=== PATIENT | female | born 1995 | race Caucasian/White ===

== ENCOUNTER 2018-10-15 20:40 | Emergency (ER) | payer OTHER ==
--- NOTE | 2018-10-15 21:09 | PDOC ---
History of Present Illness - General Stated Complaint: DIFFICULTY BREATHING Time Seen by Provider: 10/15/18 21:07 - History of Present Illness Initial Comments: 10/15/18 21:27 PCP: Dr. Cervantes Patient is a 22 year old female came in to the ED with the chief complaint of sore throat, shortness of breath and wheezing x 2 days. As per the patient, her symptoms started since 2 days, runny nose, productive cough with yellowish sputum. She used albuterol inhalation twice today but didn't feel better, shortness of breath and wheezing worsened so she came here for further evaluation. Denies fever, chills, rigors, sweating, headache, dizziness, nausea, vomiting, abdominal pain. Bowel/Bladder habit normal. Sleep/Appetite normal. Patient also reports unintentional weight loss, decreased appetite, that she noticed for 2-3 months, saw Dr. Cervantes who recommended blood work a month ago but pt hasn't done the blood work yet. States she stopped smoking weed and now her appetite is back and gaining weight. Past Medical history: Asthma dx since childhood (never been intubated), Strep pharyngitis twice Allergies: NKDA Past Surgical history: NKDA Medications: Albuterol Social: Smoking: Denies tobacco smoking Alcohol: Occasional Drugs: Quit smoking weed 2 weeks ago, used to smoke since childhood, 1-2 sticks- 4-5 times a week. Family hx: Non contributory. Past History - Travel Traveled outside of the country in the last 30 days: No Close contact w/someone who was outside of country & ill: No - Past Medical History Allergies/Adverse Reactions: Allergies Allergy/AdvReac Type Severity Reaction Status Date / Time No Known Allergies Allergy Verified 10/09/15 19:38 Home Medications: Ambulatory Orders Albuterol 0.083% Nebulizer Jessica [Ventolin 0.083% Nebulizer Soln -] 1 amp NEB BID PRN #1 amp 10/15/18 Prednisone [Deltasone] 20 mg PO DAILY #4 tablet 10/15/18 Asthma: Yes - Immunization History Immunization Up to Date: Yes - Suicide/Smoking/Psychosocial Hx Smoking History: Never smoked Have you smoked in the past 12 months: No Number of Cigarettes Smoked Daily: 0 Hx Alcohol Use: No Drug/Substance Use Hx: No Substance Use Type: None Review of Systems - Review of Systems Able to Perform ROS?: Yes Is the patient limited Mongolian proficient: No Constitutional: Yes: See HPI HEENTM: Yes: See HPI Respiratory: Yes: See HPI *Physical Exam - Physical Exam Comments: 10/15/18 21:47 General: Patient is sitting comfortably in bed, awake, alert, oriented x 3, can speak full sentence. HEENT: EOM intact, no pallor or icterus. Chest: B/L wheezing + CVS: Sinus tachycardia, S1, S2, no murmurs Abdomen: Soft, non tender, no organomegaly, BS + Ext: No Peripheral edema Neuro: Grossly normal. ED Treatment Course - LABORATORY CBC & Chemistry Diagram: 10/15/18 21:50 10/15/18 21:50 Medical Decision Making - Medical Decision Making 10/15/18 21:50 Patient is a 22 year old female came in to the ED for evaluation of sore throat , wheezing, shortness of breath and productive cough. Differential diagnosis: Asthma exacerbation with Upper respiratory tract infection, strep pharyngitis. Unlikely pneumonia, bronchitis. Will send CBC, CMP, Serum preg test Rapid strep test and flu. Once the preg test is back will send CXR PA/Lat Will give her Albuterol inhalation, Prednisone 60mg once. 10/15/18 23:05 CXR negative for acute pathology CBC, CMP normal. Urine preg test negative. Patient is currently feeling better. Vitals are stable. Saturation 97 % at RA. Wheezing has improved. Stable to be discharged home *DC/Admit/Observation/Transfer Diagnosis at time of Disposition: Asthma exacerbation, Upper respiratory tract infection - Discharge Dispostion Disposition: HOME Condition at time of disposition: Improved Decision to Admit order: No - Prescriptions Prescriptions: Albuterol 0.083% Nebulizer Jessica [Ventolin 0.083% Nebulizer Soln -] 1 amp NEB BID PRN #1 amp PRN Reason: Asthma Prednisone [Deltasone] 20 mg PO DAILY #4 tablet - Referrals - Patient Instructions Printed Discharge Instructions: Asthma -- Adult Additional Instructions: You were evaluated for cold like symptoms, you have upper respiratory tract infection with asthma exacerbation. Sending prescription to your pharmacy, please take it as directed. If your symptoms worsen, please come to the ED immediately. Follow up with your primary physician within a week. - Post Discharge Activity
[2018-10-15] MEDS ORDERED: predniSONE 20 MG TABLET (UD) PO ONE (21:28)
[2018-10-15 21:29] VITALS: BP 107/76; PULSE 114; TEMP 98.3; BMI 19.3
[2018-10-15] MEDS ORDERED: ALBUTEROL SO4 0.083% IH SOL 2.5 MG/3 ML VIAL.NEB. NEB ONE ×2 (21:31→21:37)
[2018-10-15] MEDS ORDERED: predniSONE 20 MG TABLET (UD) ONE (21:37)
--- NOTE | 2018-10-15 21:58 | PDOC ---
Documentation entered by Louis Herrera SCRIBE, acting as scribe for Marcela Hawk MD. Marcela Hawk MD: This documentation has been prepared by the Sharon hansen Nirvannie, SCRIBE, under my direction and personally reviewed by me in its entirety. I confirm that the documentation accurately reflects all work, treatment, procedures, and medical decision making performed by me. Attending Attestation - Resident Resident Name: Krysta Torres - ED Attending Attestation I have performed the following: I have examined & evaluated the patient, The case was reviewed & discussed with the resident, I agree w/resident's findings & plan - HPI HPI: 10/15/18 21:40 The patient is a 22 year old female, with no significant past medical history, who presents to the emergency department with, 2 days of cough, nasal congestion , and new onset difficulty breathing. Patient notes using her rescue inhaler, without relief, prompting her arrival to the ED. Allergies: NKDA Primary Care Physician: Dr. Cervantes - Physicial Exam PE: 10/15/18 21:41 GENERAL: Well-appearing, well-nourished. No apparent distress. HEENT: Normocephalic, atraumatic. PERRL, EOM intact.+rhinorrhea CARDIOVASCULAR: Normal S1, S2. Regular rate and rhythm. PULMONARY: +Mild blt wheezing. ABDOMEN: Soft, non-distended, non-tender. EXTREMITIES: Normal ROM in all four extremities. No gross deformities. SKIN: Warm, dry. No rash NEUROLOGICAL: No focal neurological deficits. 10/15/18 21:54 - Medical Decision Making 10/15/18 21:55 imp 22 yo female w PMH of asthma who has an URI that triggered asthma no hypoxia,no resp distress plan preg test,cxr,cbc,comp,bronchodilators,steroids 10/15/18 22:47 pt 's cbc and chemistries are unremarkable negative preg test pt received albuterol and prednisone imp URI, asthma exacerbation RX for albuterol /prednisone /zithromax to her pharmacy d/c home with folllowup with Dr Guzman 10/15/18 22:57
[2018-10-15 22:04] LABS: HEMATOCRIT 41.5 % (32.4-45.2); HEMOGLOBIN 14.1 GM/dL (10.7-15.3); MCH 33.5 pg (25.7-33.7); MEAN CELL VOLUME 98.6 fl (80-96); RBC 4.21 M/mm3 (3.60-5.2); RDW 12.5 % (11.6-15.6); WHITE BLOOD COUNT 7.6 K/mm3 (4.0-10.0)
[2018-10-15 22:33] LABS: ALBUMIN 4.2 g/dl (3.4-5.0); BILIRUBIN,TOTAL 0.5 mg/dL (0.2-1); BLOOD UREA NITROGEN 11.8 mg/dL (7-18); CALCIUM 9.1 mg/dL (8.5-10.1); CREATININE 0.8 mg/dL (0.55-1.3); POTASSIUM 3.9 mmol/L (3.5-5.1); TOT PROT 7.9 g/dl (6.4-8.2)
[2018-10-15 22:50] LABS: PLATELET COUNT 234 K/MM3 (134-434)
[2018-10-15] MEDS ORDERED: ALBUTEROL SO4 8 GM HFA INHALER IH PRN (23:29)
== END 2018-10-15 23:14 | disposition home or self-care (01) ==
LOC: JER 20:40
PROC: 3E0F7GC Introduction of Other Therapeutic Substance into Respiratory Tract, Via Natural or Artificial Opening (ICD-10-PCS; principal; 2018-10-15)
DX: J45.901 Unspecified asthma with (acute) exacerbation (principal); J06.9 Acute upper respiratory infection, unspecified
CPT/HCPCS: 36415; 71046-TC-FY; 80053; 84703; 85027; 87070; 87804; 87880; 94640; 99281-25

== ENCOUNTER 2018-12-18 13:09 | Emergency (ER) | payer OTHER ==
[2018-12-18 13:16] VITALS: BP 110/69; PULSE 95; TEMP 98; BMI 19.3
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
== END 2018-12-18 15:38 | disposition home or self-care (01) ==
LOC: JERFT 13:09
DX: T14.8XXA Other injury of unspecified body region, initial encounter (principal); W50.0XXA Accidental hit or strike by another person, initial encounter; Y93.89 Activity, other specified; Y92.89 Other specified places as the place of occurrence of the external cause; J45.909 Unspecified asthma, uncomplicated
CPT/HCPCS: 70450-TC; 70486-TC; 84703; 99281-25

== ENCOUNTER 2019-01-02 12:54 | Emergency (ER) | payer OTHER ==
--- NOTE | 2019-01-02 13:02 | PDOC ---
Rapid Medical Evaluation Chief Complaint: Urinary Problem Time Seen by Provider: 01/02/19 13:00 Medical Evaluation: Allergies Allergy/AdvReac Type Severity Reaction Status Date / Time No Known Allergies Allergy Verified 12/18/18 13:14 01/02/19 13:00 Pt presents to the ER for 1 day of dyuria, hemauria,and frequency. LMP first week of december Exam: suprapubic tenderness Orders: urine, preg Pt to proceed to the ER for further evaluation Discharge Disposition - Diagnosis Dysuria - Referrals - Patient Instructions - Post Discharge Activity
[2019-01-02 13:03] VITALS: BP 98/61; PULSE 81; TEMP 98.4; BMI 19.3
[2019-01-02 14:04] LABS: EPI CELLS 2.6 /HPF (0-5/HPF); HYALINE CASTS 7 /lpf (0-8); URINE APPEARANCE TURBID; URINE BACTERIA 433.6 /hpf (NEGATIVE); URINE BILIRUBIN NEGATIVE (NEGATIVE); URINE COLOR ORANGE; URINE GLUCOSE (UA) NEGATIVE (NEGATIVE); URINE KETONE TRACE (NEGATIVE); URINE LEUK ESTERASE 3+ (NEGATIVE); URINE NITRITE NEGATIVE (NEGATIVE); URINE PROTEIN 3+ (NEGATIVE); URINE RBC 1124 /hpf (0-4); URINE WBC 748 /hpf (0-5)
--- NOTE | 2019-01-02 14:22 | PDOC ---
History of Present Illness - General Chief Complaint: Urinary Problem Stated Complaint: URINARY PROBLEM/BLOOD IN URIN Time Seen by Provider: 01/02/19 13:00 - History of Present Illness Initial Comments: 01/02/19 14:21 23-year-old female with dysuria times one day without systemic symptoms Past History - Past Medical History Allergies/Adverse Reactions: Allergies Allergy/AdvReac Type Severity Reaction Status Date / Time No Known Allergies Allergy Verified 01/02/19 13:03 Home Medications: Ambulatory Orders Albuterol 0.083% Nebulizer Jessica [Ventolin 0.083% Nebulizer Soln -] 1 amp NEB BID PRN #1 amp 10/15/18 Nitrofurantoin Monohyd/M-Cryst [Macrobid -] 100 mg PO BID #14 capsule 01/02/19 Asthma: Yes COPD: No - Immunization History Immunization Up to Date: Yes - Suicide/Smoking/Psychosocial Hx Smoking History: Never smoked Have you smoked in the past 12 months: No Number of Cigarettes Smoked Daily: 0 If you are a former smoker, when did you quit?: 2 weeks Hx Alcohol Use: No Drug/Substance Use Hx: No Substance Use Type: None Review of Systems - Review of Systems Constitutional: No: Fever : Yes: Burning, Dysuria, Hematuria, Urgency. No: Discharge *Physical Exam - Vital Signs Last Vital Signs Temp Pulse Resp BP Pulse Ox 98.4 F 81 18 98/61 99 01/02/19 13:00 01/02/19 13:00 01/02/19 13:00 01/02/19 13:00 01/02/19 13:00 - Physical Exam Comments: 01/02/19 14:20 HEAD: NC/AT MS: Full ROM in all joints without edema NEUROLOGIC: No gross sensory or motor deficits, NVID SKIN: Normal color and temperature no lesions or rashes ED Treatment Course - ADDITIONAL ORDERS Additional order review: Laboratory Results 01/02/19 01/02/19 13:09 13:09 Urine Color [place] Urine Appearance Turbid Urine pH 5.0 Ur Specific [place] 1.023 Urine Protein 3+ H Urine Glucose (UA) Negative Urine Ketones Trace H Urine Blood 3+ H Urine Nitrite Negative Urine Bilirubin Negative Urine Urobilinogen 1.0 Ur Leukocyte Esterase 3+ H Urine WBC (Auto) 748 Urine RBC (Auto) 1124 Urine Casts (Auto) 7 U Epithel Cells (Auto) 2.6 Urine Bacteria (Auto) 433.6 Urine HCG, Qual Negative Medical Decision Making - Medical Decision Making 01/02/19 14:20 Urine indeterminate but symptomatic we'll treat for UTI *DC/Admit/Observation/Transfer Diagnosis at time of Disposition: Dysuria, UTI (urinary tract infection) - Discharge Dispostion Disposition: HOME Condition at time of disposition: Stable Decision to Admit order: No - Prescriptions Prescriptions: Nitrofurantoin Monohyd/M-Cryst [Macrobid -] 100 mg PO BID #14 capsule - Referrals Referrals: Jamin Cervantes MD [Primary Care Provider] - - Patient Instructions Printed Discharge Instructions: Urinary Tract Infection, DI for Urinary Tract Infection (UTI) Additional Instructions: The antibiotics as directed and finish the entire course. Return to the emergency room for worsening symptoms. Follow-up with her primary care physician in 1-2 days without fail for further evaluation and treatment options. - Post Discharge Activity
== END 2019-01-02 14:23 | disposition home or self-care (01) ==
LOC: JERFT 12:54
DX: N39.0 Urinary tract infection, site not specified (principal)
CPT/HCPCS: 81003; 84703; 87086; 87186; 99282-25

== ENCOUNTER 2019-03-26 11:45 | Emergency (ER) | payer OTHER ==
[2019-03-26 12:17] VITALS: BP 96/69; PULSE 89; TEMP 98; BMI 20.5
[2019-03-26] MEDS ORDERED: ACETAMINOPHEN 500 MG TABLET (FP) PO ONE (12:46)
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
[2019-03-26] MEDS ORDERED: ACETAMINOPHEN 325 MG TABLET (FP) ONE (12:58)
== END 2019-03-26 15:13 | disposition home or self-care (01) ==
LOC: JERFT 11:45
DX: S06.0X0A Concussion without loss of consciousness, initial encounter (principal); S16.1XXA Strain of muscle, fascia and tendon at neck level, initial encounter; V49.9XXA Car occupant (driver) (passenger) injured in unspecified traffic accident, initial encounter; W22.11XA Striking against or struck by driver side automobile airbag, initial encounter; Y92.414 Local residential or business street as the place of occurrence of the external cause; Y93.89 Activity, other specified; Y99.8 Other external cause status
CPT/HCPCS: 70450-TC; 72125-TC; 84703; 99281-25

== ENCOUNTER 2021-07-19 17:57 | Emergency (ER) | payer OTHER ==
[2021-07-19 18:10] VITALS: TEMP 97; BMI 20.1
[2021-07-19 18:58] LABS: BASO % 0.3 % (0-2.0); EOS % 1.5 % (0-4.5); HEMATOCRIT 36.6 % (32.4-45.2); HEMOGLOBIN 12.6 GM/dL (10.7-15.3); LYMPH % 29.2 % (8-40); MCH 32.9 pg (25.7-33.7); MCHC 34.5 g/dl (32.0-36.0); MEAN CELL VOLUME 95.2 fl (80-96); MEAN PLT VOLUME 8.6 fl (7.5-11.1); MONO % 10.1 % (3.8-10.2); NEUT % 58.9 % (42.8-82.8); PLATELET COUNT 206 10^3/uL (134-434); RBC 3.84 M/mm3 (3.60-5.2); RDW 12.6 % (11.6-15.6); WHITE BLOOD COUNT 6.9 K/mm3 (4.0-10.0)
[2021-07-19 19:01] LABS: EPI CELLS >36 /uL (0-25.1); HYALINE CASTS 3 /uL (0-3.1); PH,URINE 6.5 (5.0-8.0); URINE APPEARANCE CLOUDY; URINE BACTERIA 851 /uL (0-1359); URINE BILIRUBIN NEGATIVE (NEGATIVE); URINE COLOR YELLOW; URINE GLUCOSE (UA) NEGATIVE (NEGATIVE); URINE KETONE NEGATIVE (NEGATIVE); URINE LEUK ESTERASE 1+ (NEGATIVE); URINE NITRITE NEGATIVE (NEGATIVE); URINE PROTEIN NEGATIVE (NEGATIVE); URINE RBC 24 /uL (0-23.9); URINE WBC 76 /uL (0-25.8)
[2021-07-19 19:06] LABS: INR 1.14 (0.83-1.09); PROTHROMBIN TIME (PATIENT) 13.1 SEC (9.7-13.0)
[2021-07-19 19:09] LABS: CALCIUM 9.3 mg/dL (8.5-10.1)
[2021-07-19 19:10] LABS: ALBUMIN 3.8 g/dl (3.4-5.0); BLOOD UREA NITROGEN 7.1 mg/dL (7-18)
[2021-07-19 19:13] LABS: CREATININE 0.5 mg/dL (0.55-1.3)
[2021-07-19 19:14] LABS: BILIRUBIN,TOTAL 0.5 mg/dL (0.2-1); TOT PROT 7.3 g/dl (6.4-8.2)
[2021-07-19 20:42] VITALS: BP 107/62; PULSE 67
== END 2021-07-19 20:48 | disposition home or self-care (01) ==
LOC: JER 17:57
DX: O20.0 Threatened abortion (principal); Z3A.08 8 weeks gestation of pregnancy
CPT/HCPCS: 36415; 76817-TC; 80053; 81003; 84702; 85025; 85610; 86850; 86900; 86901; 87086; 99284-25